=== PATIENT | male | born 1995 | race Caucasian/White ===

== ENCOUNTER 2022-03-16 17:06 | Emergency (ER) | payer SELFPAY ==
[~2022-03-16] VITALS: Ht 170.2 cm; Wt 84.0 kg
[2022-03-16 17:13] VITALS: BP 131/70
[2022-03-16] MEDS ORDERED: AM250 MT (21:00)
== END 2022-03-16 21:21 | disposition home or self-care (01) ==
LOC: ER 17:20
DX: J02.9 Acute pharyngitis, unspecified (principal)
CPT/HCPCS: 87804; 99283